=== PATIENT | male | born 1980 ===

== ENCOUNTER 2017-06-16 15:48 | Emergency (ER) | payer MEDICAID ==
[2017-06-16 15:53] VITALS: RESP 16
--- NOTE | 2017-06-16 17:09 | ED PDOC ---
HPI: Psych/Substance Abuse Time Seen by Provider: 06/16/17 15:56 Chief Complaint (Nursing): Psychiatric Evaluation Chief Complaint (Provider): Psychiatric Evaluation History Per: Patient History/Exam Limitations: no limitations Onset/Duration Of Symptoms: Mins (prior to arrival) Current Symptoms Are (Timing): Still Present Additional Complaint(s): Pablo Sinha is a 37 year old male with previous medical history of bipolar disorder and schizophrenia, who presents to the emergency department for a psychiatric evaluation after hearing voices in his head associated with dizziness prior to arrival. Denied suicidal or homicidal ideation. Patient stated he was recently discharged from psychiatric unit at [facility] earlier today. PMD: none provided Past Medical History Reviewed: Historical Data, Nursing Documentation, Vital Signs Vital Signs: Last Vital Signs Temp 98.6 F 06/16/17 15:49 Pulse 111 H 06/16/17 15:49 Resp 16 06/16/17 15:49 BP 134/79 06/16/17 15:49 Pulse Ox 98 06/16/17 15:49 - Medical History PMH: Anxiety, Bipolar Disorder, Depression, Schizophrenia - Family History Family History: States: Unknown Family Hx - Immunization History Hx Tetanus Toxoid Vaccination: No Hx Influenza Vaccination: No Hx Pneumococcal Vaccination: No - Home Medications Home Medications: Ambulatory Orders Medication Instructions Recorded Benztropine [Benztropine Mesylate] 1 mg PO HS 06/13/17 Clonazepam [Klonopin] 1 mg PO BID 06/13/17 Clonazepam [Klonopin] 1 mg PO HS PRN 06/13/17 Haloperidol [Haldol] 5 mg PO HS 06/13/17 Ibuprofen/Diphenhydramine Cit 1 tab PO HS 06/13/17 [Motrin Pm 38 mg-200 mg] Risperidone 2 mg PO BID 06/13/17 Risperidone 3 mg PO HS 06/13/17 hydrOXYzine Pamoate [Vistaril] 50 mg PO Q6 PRN 06/13/17 Benztropine [Cogentin] 1 mg PO HS #30 tab 06/16/17 FLUoxetine [Prozac] 20 mg PO DAILY #30 cap 06/16/17 risperiDONE [RisperDAL Tab] 2 mg PO DAILY #30 tab 06/16/17 traZODone [Desyrel] 50 mg PO HS PRN #30 tab 06/16/17 - Allergies Allergies/Adverse Reactions: Allergies Allergy/AdvReac Type Severity Reaction Status Date / Time No Known Allergies Allergy Verified 06/13/17 11:30 Review of Systems ROS Statement: Except As Marked, All Systems Reviewed And Found Negative Psych: Positive for: Other (auditory hallucinations). Negative for: Suicidal ideation (or homicidal ideation) Physical Exam - Physical Exam Appears: Positive for: Well, Non-toxic, No Acute Distress Head Exam: Positive for: ATRAUMATIC, NORMAL INSPECTION, NORMOCEPHALIC Cardiovascular/Chest: Positive for: Regular Rate, Rhythm Respiratory: Positive for: Normal Breath Sounds. Negative for: Crackles, Rales , Rhonchi, Wheezing Extremity: Positive for: Normal ROM Neurologic/Psych: Positive for: Alert, automobiles salesperson II-XII (intact), Oriented. Negative for: Motor/Sensory Deficits, Other (ataxia) - ECG O2 Sat by Pulse Oximetry: 98 (RA) Pulse Ox Interpretation: Normal Medical Decision Making Medical Decision Making: Initial Impression: Psychiatric Evaluation Initial Plan: Scribe Attestation: Documented by Zaida Phan, acting as a scribe for Michelle Agrawal MD. Provider Scribe Attestation: All medical record entries made by the Scribe were at my direction and personally dictated by me. I have reviewed the chart and agree that the record accurately reflects my personal performance of the history, physical exam, medical decision making, and the department course for this patient. I have also personally directed, reviewed, and agree with the discharge instructions and disposition. Disposition - Clinical Impression Clinical Impression: Schizophrenia - Disposition Referrals: [facility] [Outside] Condition: STABLE Instructions: Schizophrenia (ED) Forms: [employer] (Egyptian) Addendum Addendum: 06/16/17 18:56 After pt was discharged, pt c/o chest pain and HERNANDEZ in waiting room. Pt brought back into ED, labs, EKG, CXR and CT head ordered.
--- NOTE | 2017-06-16 19:22 | RAD ---
HISTORY: COMPARISON: TECHNIQUE: Chest PA and lateral FINDINGS: LINES AND TUBES: None. LUNG AND PLEURA: The lungs are hyperinflated and there is peribronchial thickening with chronic changes in both lungs. There is no focal consolidation. HEART AND MEDIASTINUM: The heart is not enlarged. The hilar and mediastinal contours are within normal limits. SKELETAL STRUCTURES: The bony structures are within normal limits for the patient's age. VISUALIZED UPPER ABDOMEN: Normal. OTHER FINDINGS: None. IMPRESSION: No active pulmonary disease. COPD.
[2017-06-16 19:26] LABS: BASO # 0.1 K/uL (0.0-0.2); EOS # 0.2 K/uL (0.0-0.7); HEMOGLOBIN 13.9 g/dL (12.0-18.0); LYMPH # 2.2 K/uL (1.0-4.3); LYMPH % 24.6 % (20.0-40.0); MEAN CORPUSCULAR HEMOGLOBIN 30.3 pg (27.0-31.0); MEAN CORPUSCULAR HGB CONC 34.8 g/dL (33.0-37.0); MEAN PLATELET VOLUME 7.3 fl (7.2-11.7); MONO # 0.8 K/uL (0.0-0.8); MONO % 9.5 % (0.0-10.0); NEUT # 5.5 K/uL (1.8-7.0); NEUT % 62.9 % (50.0-75.0); NRBC % 0.1 % (0.0-0.0); RBC 4.59 Mil/uL (4.40-5.90); RED CELL DISTRIBUTION WIDTH 12.2 % (11.5-14.5); WHITE BLOOD COUNT 8.7 K/uL (4.8-10.8)
[2017-06-16 19:57] LABS: ALB/GLOB RATIO 1.4 (1.0-2.1); ALBUMIN 4.4 g/dL (3.5-5.0); ALT/SGPT 31 U/L (21-72); AST/SGOT 23 U/L (17-59); BLOOD UREA NITROGEN 14 mg/dl (9-20); CALCIUM 9.5 mg/dL (8.4-10.2); GFR AFRICAN-AMERICAN > 60; GFR NON-AFRICAN AMERICAN > 60
--- NOTE | 2017-06-16 20:29 | ED PDOC ---
- Laboratory Results Result Diagrams: 06/16/17 19:16 06/16/17 19:16 - ECG O2 Sat by Pulse Oximetry: 98 (RA) Pulse Ox Interpretation: Normal Medical Decision Making Medical Decision Making: Time: 1899 --Patient was endorsed to provider by Dr. Michelle Agrawal. Pending cardiac workup and re-evaluation. Time: 2105 --CT head FINDINGS: Brain: No intracranial hemorrhage. No mass. Calcifications of basal ganglia. No definite edema. Ventricles: No hydrocephalus. Bones/joints: No acute fracture. Soft tissues: Unremarkable. Sinuses: No acute sinusitis. Mastoid air cells: No mastoid effusion. Orbits: Unremarkable as visualized. IMPRESSION: 1. No acute intracranial abnormality. 2. Incidental/non-acute findings are described above. Time: 2109 --Upon provider reevaluation, patient is medically stable and requires no further treatment in the ED at this time. Patient will be discharged home. There is agreement to discharge plan. Return if symptoms persist or worsen. Clinical Impression: Schizophrenia Scribe Attestation: Documented by Zaida Phan, acting as a scribe for Kody De Jesus MD. Provider Scribe Attestation: All medical record entries made by the Scribe were at my direction and personally dictated by me. I have reviewed the chart and agree that the record accurately reflects my personal performance of the history, physical exam, medical decision making, and the department course for this patient. I have also personally directed, reviewed, and agree with the discharge instructions and disposition. Disposition Counseled Patient/Family Regarding: Studies Performed, Diagnosis, Need For Followup - Clinical Impression Clinical Impression: Schizophrenia - POA Present On Arrival: None - Disposition Referrals: [facility] [Outside] [facility] [Outside] Disposition: Routine/Home Disposition Time: 20:00 Condition: STABLE Additional Instructions: follow up with your primary doctor in 1-2 days return to the ED with any worsening or concerning symptoms. Instructions: Schizophrenia (ED) Forms: [employer] (Polish)
[2017-06-16 21:05] VITALS: BP 125/80; PULSE 75; TEMP 98.1
--- NOTE | 2017-06-16 21:06 | CT ---
EXAM: CT Head Without Intravenous Contrast CLINICAL HISTORY: 37 years old, male; Signs and symptoms; Other: Crisis eval; Additional info: HERNANDEZ TECHNIQUE: Axial computed tomography images of the head/brain without intravenous contrast. All CT scans at this facility use one or more dose reduction techniques, viz.: automated exposure control; ma/kV adjustment per patient size (including targeted exams where dose is matched to indication; i.e. head); or iterative reconstruction technique. Coronal and sagittal reformatted images were created and reviewed. COMPARISON: No relevant prior studies available. FINDINGS: Brain: No intracranial hemorrhage. No mass. Calcifications of basal ganglia. No definite edema. Ventricles: No hydrocephalus. Bones/joints: No acute fracture. Soft tissues: Unremarkable. Sinuses: No acute sinusitis. Mastoid air cells: No mastoid effusion. Orbits: Unremarkable as visualized. IMPRESSION: 1. No acute intracranial abnormality. 2. Incidental/non-acute findings are described above.
[2017-06-16 21:14] VITALS: O2SAT 98
--- NOTE | 2017-06-17 11:32 | CARD ---
APPROVED REPORT EKG Measurement Heart [id number] <Conclusion> Normal sinus rhythm Normal ECG
== END 2017-06-16 21:30 | disposition home or self-care (01) ==
LOC: H.ER 15:48
DX: F20.9 Schizophrenia, unspecified (principal); Z00.8 Encounter for other general examination; Z86.59 Personal history of other mental and behavioral disorders

== ENCOUNTER 2017-06-16 23:35 | Emergency (ER) | payer MEDICAID ==
[2017-06-16 23:52] VITALS: BP 128/83; PULSE 87; RESP 17; TEMP 98.1; O2SAT 98
--- NOTE | 2017-06-17 00:34 | ED PDOC ---
- ECG O2 Sat by Pulse Oximetry: 98 (RA) Pulse Ox Interpretation: Normal Medical Decision Making Medical Decision Making: Patient is a 37 year old male presenting to the emergency department for drug seeking behavior. Patient is noted for having several visits to the hospital. He was discharged less than 2 hours ago from the emergency department for a crisis evaluation. Afterwards he returned for a complaint of chest pain, was medically cleared and discharged. He is requesting a psych evaluation. PCP: Disposition - Clinical Impression Clinical Impression: Stress - Disposition Referrals: [facility] [Outside] [facility] [Outside] Condition: IMPROVED Additional Instructions: follow up with your doctor return tot he ED with any worsening or concerning symptoms Instructions: Stress (ED) Forms: [employer] (Upper Sorbian)
--- NOTE | 2017-06-17 00:36 | ED PDOC ---
HPI: Psych/Substance Abuse Time Seen by Provider: 06/16/17 23:40 Chief Complaint (Nursing): Psychiatric Evaluation Chief Complaint (Provider): Psych evaluation History Per: Patient History/Exam Limitations: no limitations Onset/Duration Of Symptoms: Hrs Additional Complaint(s): Patient is a 37 year old male presenting to the emergency department for bedseeking behavior. Patient is noted for his previous visits to the ED today: he was discharged less than 2 hours ago for a crisis evaluation and afterwards returned for a complaint of chest pain for which he was medically cleared and discharged. Currently requesting a psych evaluation. PCP: none provided. Past Medical History Reviewed: Historical Data, Nursing Documentation, Vital Signs Vital Signs: Last Vital Signs Temp 98.1 F 06/16/17 23:40 Pulse 87 06/16/17 23:40 Resp 17 06/16/17 23:40 BP 128/83 06/16/17 23:40 Pulse Ox 98 06/17/17 00:34 - Medical History PMH: Anxiety, Bipolar Disorder, Depression, Schizophrenia - Surgical History Surgical History: No Surg Hx - Family History Family History: States: Unknown Family Hx - Social History Current smoker - smoking cessation education provided: Yes (More than 10 cigarettes a day) Ex-Smoker (has not smoked in the last 12 months): No Alcohol: None Drugs: Denies - Immunization History Hx Tetanus Toxoid Vaccination: No Hx Influenza Vaccination: No Hx Pneumococcal Vaccination: No - Home Medications Home Medications: Ambulatory Orders Medication Instructions Recorded Benztropine [Benztropine Mesylate] 1 mg PO HS 06/13/17 Clonazepam [Klonopin] 1 mg PO BID 06/13/17 Clonazepam [Klonopin] 1 mg PO HS PRN 06/13/17 Haloperidol [Haldol] 5 mg PO HS 06/13/17 Ibuprofen/Diphenhydramine Cit 1 tab PO HS 06/13/17 [Motrin Pm 38 mg-200 mg] Risperidone 2 mg PO BID 06/13/17 Risperidone 3 mg PO HS 06/13/17 hydrOXYzine Pamoate [Vistaril] 50 mg PO Q6 PRN 06/13/17 Benztropine [Cogentin] 1 mg PO HS #30 tab 06/16/17 FLUoxetine [Prozac] 20 mg PO DAILY #30 cap 06/16/17 risperiDONE [RisperDAL Tab] 2 mg PO DAILY #30 tab 06/16/17 traZODone [Desyrel] 50 mg PO HS PRN #30 tab 06/16/17 - Allergies Allergies/Adverse Reactions: Allergies Allergy/AdvReac Type Severity Reaction Status Date / Time No Known Allergies Allergy Verified 06/13/17 11:30 Review of Systems ROS Statement: Except As Marked, All Systems Reviewed And Found Negative Physical Exam - Reviewed Nursing Documentation Reviewed: Yes - Physical Exam Appears: Positive for: Well, Non-toxic, No Acute Distress Head Exam: Positive for: ATRAUMATIC, NORMAL INSPECTION, NORMOCEPHALIC Skin: Positive for: Normal Color, Warm, Dry Cardiovascular/Chest: Positive for: Regular Rate, Rhythm. Negative for: Murmur Respiratory: Positive for: Normal Breath Sounds. Negative for: Accessory Muscle Use, Respiratory Distress Gastrointestinal/Abdominal: Positive for: Soft Extremity: Positive for: Normal ROM. Negative for: Pedal Edema Neurologic/Psych: Positive for: Alert, Oriented - ECG O2 Sat by Pulse Oximetry: 98 (RA) Pulse Ox Interpretation: Normal Medical Decision Making Medical Decision Making: Time: 00: 40 Diagnosis: Stress and adjustment disorder as per repack room worker Cleo who evaluated pt Upon provider reevaluation patient is feeling better, is medically stable, and requires no further treatment in the ED at this time. Counseling was provided and all questions were answered regarding diagnosis and need for follow up with referred clinic. There is agreement to discharge plan. Return if symptoms persist or worsen. ~ Scribe Attestation: Documented by Xochitl Jama, acting as a scribe for Kody De Jesus MD Provider Scribe Attestation: All medical record entries made by the Scribe were at my direction and personally dictated by me. I have reviewed the chart and agree that the record accurately reflects my personal performance of the history, physical exam, medical decision making, and the department course for this patient. I have also personally directed, reviewed, and agree with the discharge instructions and disposition. Disposition - Clinical Impression Clinical Impression: Stress - Patient ED Disposition Is Patient to be Admitted: No Counseled Patient/Family Regarding: Studies Performed, Diagnosis, Need For Followup - Disposition Referrals: [facility] [Outside] [facility] [Outside] Disposition: Routine/Home Disposition Time: 00:00 Condition: IMPROVED Additional Instructions: follow up with your doctor return tot he ED with any worsening or concerning symptoms Instructions: Stress (ED) Forms: [employer] (Azeri)
== END 2017-06-17 00:31 | disposition home or self-care (01) ==
LOC: H.ER 23:35
DX: F43.20 Adjustment disorder, unspecified (principal); F17.210 Nicotine dependence, cigarettes, uncomplicated; Z86.59 Personal history of other mental and behavioral disorders; Z00.8 Encounter for other general examination